=== PATIENT | female | born 1945 | race African-American/Black ===

== ENCOUNTER 2016-10-30 07:49 | Emergency (ER) | payer OTHER ==
[~2016-10-30] VITALS: Ht 175.3 cm; Wt 80.0 kg
[~2016-10-30 07:49] MED LIST: AMLO1CAP2 PO; GLIM2TAB2 PO; HYDR25TA PO; LINA5TAB PO; METF500T4 PO; TIMO15DR12 OP; TRAV2.5D OP
[2016-10-30 10:27] LABS: BASOPHILS % 0.4 % (0.0-2.0); EOSINOPHILS % 1.9 % (0.0-5.0); HEMATOCRIT. 38.5 % (36.0-48.0); HEMOGLOBIN. 12.7 g/dL (12.0-16.0); LYMPHOCYTES % 35.9 % (20.0-50.0); MEAN CORPUSCULAR HEMOGLOBIN 26.7 pg (28.0-32.0); MEAN PLATELET VOLUME 8.1 fl (7.4-10.4); MONOCYTES % 5.6 % (2.0-8.0); NEUTROPHILS % 56.2 % (40.0-76.0); PLATELET 207 x1000/uL (130-400); RED BLOOD CELL COUNT 4.75 mill/uL (4.2-5.4); RED CELL DISTRIBUTION WIDTH 15.1 % (11.6-14.6)
[2016-10-30 10:42] LABS: CARBON DIOXIDE 28 mEq/L (21-32); CHLORIDE 107 mEq/L (98-107); D-DIMER 0.54 mg/L FEU (<0.50); PARTIAL THROMBOPLASTIN TIME 26.4 sec (24.0-34.0); PROTHROMBIN TIME 10.6 sec
[2016-10-30 10:44] LABS: TROPONIN I < 0.02 ng/mL (0.00-0.04)
[2016-10-30] MEDS ORDERED: MORPHINE SULFATE 4 MG/ML CPJ (NOT FOR IM USE) IV ONE (11:00)
[2016-10-30 11:54] VITALS: BP 128/77
[2016-10-30] MEDS ORDERED: KETOROLAC 60MG/2ML VIAL IM ONE (12:00)
== END 2016-10-30 12:28 | disposition home or self-care (01) ==
LOC: ER 09:04
DX: M79.662 Pain in left lower leg (principal); M79.89 Other specified soft tissue disorders; I10 Essential (primary) hypertension; E11.9 Type 2 diabetes mellitus without complications; Z88.2 Allergy status to sulfonamides; Z79.899 Other long term (current) drug therapy
CPT/HCPCS: 36415; 80053; 84484; 85025; 85379; 85610; 85730; 93971; 96372; 99285; J1885